=== PATIENT | female | born 1990 | race Caucasian/White ===

== ENCOUNTER 2017-04-11 10:26 | Inpatient (IN) | payer BC, MEDICAID ==
[2017-04-11] MEDS ORDERED: ZOLPIDEM TARTRATE 5 MG TABLET PO PRN (10:51)
[2017-04-11] MEDS ORDERED: MAG HYDROX/AL HYDROX/SIMETH SUSP 30 ML UDCUP PO PRN (10:51)
[2017-04-11] MEDS ORDERED: ACETAMINOPHEN 325 MG TABLET PO PRN (10:51)
[2017-04-11] MEDS ORDERED: DINOPROSTONE 10 MG VAGINAL INSERT.SR PV ONE (10:51)
[2017-04-11] MEDS ORDERED: OXYTOCIN/NORMAL SALINE 1,000 ML IV PRN (10:51)
[2017-04-11] MEDS ORDERED: RINGERS SOLUTION,LACTATED 300 ML IV ONE (10:51)
[2017-04-11 11:38] LABS: HEMATOCRIT 30.6 % (36.0-47.0); HEMOGLOBIN 10.3 g/dL (12.0-15.5); HGB HCT DIFFERENCE 0.3; MEAN CORPUSCULAR HEMOGLOBIN 28.2 pg (27.0-33.4); MEAN CORPUSCULAR HGB CONC 33.7 g/dL (32.0-36.0); MEAN CORPUSCULAR VOLUME 84 fl (80-97); RED BLOOD COUNT 3.66 10^6/uL (3.72-5.28); RED CELL DISTRIBUTION WIDTH 14.4 % (11.5-14.0)
[2017-04-11] MEDS ORDERED: MISOPROSTOL 0.1 MG TABLET ONE ×3 (11:47→21:06)
[2017-04-11 12:13] LABS: URINE BARBITURATES SCREEN NEGATIVE; URINE METHADONE SCREEN NEGATIVE; URINE OPIATES LOW NEGATIVE; URINE PHENCYCLIDINE SCREEN NEGATIVE
[2017-04-11] MEDS: RINGERS SOLUTION,LACTATED 1,000 ML IV PRN (12:24)
[2017-04-11] MEDS: MISOPROSTOL 0.1 MG TABLET PO SCH ×3 (12:24→21:12)
[2017-04-11] MEDS ORDERED: ACETAMINOPHEN 325 MG TABLET ONE (18:38)
[2017-04-12] MEDS ORDERED: OXYTOCIN/NORMAL SALINE 20 UNIT/1,000 ML RTUINJ ONE (01:53)
[2017-04-12] MEDS: RINGERS SOLUTION,LACTATED 1,000 ML IV PRN ×3 (02:05→15:49)
[2017-04-12] MEDS ORDERED: PROMETHAZINE HCL INJ 25 MG/1 ML VIAL IV ONE (03:09)
[2017-04-12] MEDS ORDERED: NALBUPHINE HCL INJ 10 MG/1 ML AMPULE INJ ONE (03:09)
[2017-04-12] MEDS ORDERED: NALBUPHINE HCL INJ 10 MG/1 ML AMPULE ONE (03:11)
[2017-04-12] MEDS ORDERED: PROMETHAZINE HCL INJ 25 MG/1 ML VIAL ONE (03:11)
[2017-04-12] MEDS ORDERED: EPHEDRINE SULFATE INJ 50 MG/1 ML AMPULE ONE (07:25)
[2017-04-12] MEDS ORDERED: FENTANYL/BUPIVACAINE/NS/PF 200 MCG/100 ML RTUINJ EPI ONE (07:26)
[2017-04-12] MEDS ORDERED: BUPIVACAINE HCL 0.25 % INJ/PF (2.5 MG/1 ML) 30 ML VIAL ONE (07:26)
[2017-04-12] MEDS ORDERED: LIDOCAINE 1% INJ-PF (10 MG/ML) 30 ML SDV ONE (13:56)
[2017-04-12] MEDS: MISOPROSTOL 0.1 MG TABLET PO SCH (15:48)
[2017-04-12] MEDS ORDERED: ACETAMINOPHEN WITH CODEINE #3 TABLET ONE (15:58)
--- NOTE | 2017-04-12 16:12 | Admission Physical ---
Datetime Report Generated by CPN: 04/12/2017 16:11 CURRENT ADMISSION Chief Complaint: Scheduled Induction of Labor Indication for Induction: Postterm Admit Plan: Initiate Labor Induction Protocol ALLERGIES Medication Allergies: No Medication Allergies: No Known Allergies (04/12/2017) Medication Allergies: No Known Allergies (01/03/2013) Latex: No Latex Allergies OBSTETRICAL HISTORY EDC: 04/01/2017 00:00 : 1 Para: 0 Term: 0 : 0 SAB: 0 IAB: 0 Ectopic: 0 Livin Cesareans: 0 VBACs: 0 Multiple Births: 0 Gestational Diabetes: No Rh Sensitization: No Incompetent Cervix: No SHANTANU: No Infertility: No ART Treatment: No Uterine Anomaly: No IUGR: No Hx Previous C/S: No Macrosomia: No Hx Loss/Stillborn: No PIH: No Hx : No Placenta Previa/Abruption: No Depression/PP Depression: Yes PTL/PROM: No Post Hemorrhage: No Current Procedures: Ultrasound; NST Obstetrical History Comments: G1 current SEE RECORDS Alcohol: No Marijuana : No Marijuana Comments: unspecified/unknown type of drug abuse history written in records patient received treatment and has been clean for one year Cocaine: No Cocaine Comments: unspecified/unknown type of drug abuse history written in records patient received treatment and has been clean for one year Other Illicit Drugs: No Illicit Drug Comments: unspecified/unknown type of drug abuse history written in records patient received treatment and has been clean for one year Cigarettes: Never Smoker. [id number] MEDICAL HISTORY Diabetes: No Blood Transfusion: No Pulmonary Disease (Asthma, TB): Yes Breast Disease: No Hypertension: No Manager Statistics Surgery: No Heart Disease: No Hosp/Surgery: No Autoimmune Disorder: No Anesthetic Complications: No Kidney Disease: No Abnormal Pap Smear: No Neuro/Epilepsy: No Psychiatric Disorders: No Other Medical Diseases: No Hepatitis/Liver Disease: No Significant Family History: No Varicosities/Phlebitis: No Trauma/Violence : No Thyroid Dysfunction: No Medical History Comments: unspecified drug abuse history written in records patient received treatment and has been clean for one year, asthma, depression history (Annotations: Data stored by [facility] on behalf of user) INFECTIOUS HISTORY Gonorrhea: No Genital Herpes: No Chlamydia: No Tuberculosis: No Syphilis: No Hepatitis: No HIV/AIDS Exposure: No Rash or Viral Illness: No HPV: No PHYSICAL EXAM General: Normal HEENT: Deferred Neurologic: Normal Thyroid: Deferred Heart: Normal Lungs: Normal Breast: Deferred Back: Deferred Abdomen: Normal Extremities: Deferred DTRs: Deferred Pelvic Type: Adequate Physical Exam Comments: cervix exam per RN Vital Signs: Reviewed VAGINAL EXAM Dilatation: 2 Effacement: 50 Station: -3 MEMBRANES Membranes: Intact FETUS A EGA: 41.3 Monitoring: External US FHR- Baseline: 150 Variability: Moderate 6-25bpm Accelerations: 15X15 Decelerations: None FHR Category: Category I Presentation: Vertex Admit Comment: plan for cytotec, then pitocin PLANS FOR LABOR AND DELIVERY Labor and Delivery: Plan Pain Management: Epidural Feeding Preference: Breast Benefit of Breast Feed Discussed: Yes Circumcision: Yes INFORMED CONSENT Assignment: Chris Garduno DO Signature: with User ID: [email or web address] : with User ID: [email or web address]
--- NOTE | 2017-04-12 16:33 | Delivery Summary ---
Del Sum A-C Datetime Report Generated by CPN: 04/12/2017 16:33 DELIVERY PERSONNEL DELIVERY PERSONNEL: [phone] Delivery Doctor:: Fox Chaidez MD Labor and Delivery Nurse:: Tessa Zhang RNlpn Nurse:: Raina Sloan RN Nursery Nurse:: Laura Anaya RN Nursery Nurse:: Erika Saunders RN MATERNAL INFORMATION Delivery Anesthesia: Epidural Medications After Delivery: Pitocin Drip 20 Units/1000ml NSS Estimated Blood Loss (ml): 250 LABOR SUMMARY EDC: 04/01/2017 00:00 No. Babies in Womb: 1 Attempted: No Labor Anesthesia: Epidural LABOR INFORMATION Reason for Induction: Not Applicable Onset of Labor: 04/12/2017 03:10 Complete Dilatation: 04/12/2017 12:32 Cervical Ripening Agents: Cytotec @ (Annotations: 0.25mcg po) Oxytocin: Induction Group B Beta Strep: Negative Steroids Given: None Reason Steroids Not Administered: Not Applicable MEMBRANES Membranes Rupture Method: Spontaneous Rupture of Membranes: 04/12/2017 04:28 Length of Rupture (hr): 9.38 Amniotic Fluid Color: Clear Amniotic Fluid Amount: Large Amniotic Fluid Odor: Normal STAGES OF LABOR Stage 1 hr: 9 Stage 1 min: 22 Stage 2 hr: 1 Stage 2 min: 19 Stage 3 hr: 0 Stage 3 min: 10 Total Time in Labor hr: 10 Total Time in Labor min: 51 VAGINAL DELIVERY Episiotomy: None Laceration Extension: Second Degree Laceration Type: Perineal Other Laceration: labial Laceration Repair: Yes Laceration Repair Note: repair in usual fashion Sponge Count Correct: Yes; Vaginal Sweep Performed Sharps Count Correct: Yes CSECTION DELIVERY Primary Indication: N/A Secondary Indication: N/A CSection Incidence: N/A Labor: N/A Elective: N/A CSection Incision: N/A BABY A INFORMATION Infant Delivery Date/Time: 04/12/2017 13:51 Method of Delivery: Vaginal Born in Route : No : N/A Forceps: N/A Vacuum Extraction: N/A Shoulder Dystocia : No PRESENTATION/POSITION BABY A Presentation: Cephalic Cephalic Presentation: Vertex Vertex Position: Right Occipital Anterior Breech Presentation: N/A PLACENTA INFORMATION BABY A Placenta Delivery Time : 04/12/2017 14:01 Placenta Method of Delivery: Spontaneous Placenta Status: Delivered SCORES BABY A Heart Rate 1 min: >100 bpm Resp Effort 1 min: Good Cry Reflex Irritability 1 min: Cough or Sneeze or Pulls Away Muscle Tone 1 min: Active Motion Color 1 min: Body [place], Extremities Blue Resuscitation Effort 1 min: Tactile Stimulation SCORE 1 MIN: 9 Heart Rate 5 min: >100 bpm Resp Effort 5 min: Good Cry Reflex Irritability 5 min: Cough or Sneeze or Pulls Away Muscle Tone 5 min: Active Motion Color 5 min: Completely [place] Resuscitation Effort 5 min: Tactile Stimulation SCORE 5 MIN: 10 INFORMATION BABY A Gestational Age at Delivery: 41.4 Gestational Status: Late Term- 41- 41.6 Weeks Outcome : Liveborn Infant Condition : Stable Infant Sex: Male IDENTIFICATION BABY A Infant Verification Date/Time: 04/12/2017 14:25 ID Band Number: [id number] Mother's Name Verified: Yes RN Verifying Infant: B Kathyady RN Additional Verifying Personnel: Trupti Kumar RN WEIGHT/LENGTH BABY A Birthweight (gm): 3440 Weight (lb): 7 Infant Weight (oz): 9 Length (in): 20.00 Length (cm): 50.80 CORD INFORMATION BABY A No. Cord Vessels: 3 Nuchal Cord : N/A Cord Blood Taken: Yes-For Eval (Mom's Blood Type - or O+) (Annotations: Data stored by [facility] on behalf of user) Infant Suction: None ASSESSMENT BABY A Complications: None Physical Findings at Delivery: Molding of the Head Infant Respirations: Appears Normal Skin to Skin: Yes Skin to Skin Time (min): 115 Patient Financial Counselor/ALS Called : No Infant Care By: A Héctor RN Transferred To: Remains with Mother BABY B INFORMATION : N/A SIGNATURES Signature: with User ID: [email or web address] : I was personally available for consultation and serving as supervising physician for the MLP.
[2017-04-12] MEDS ORDERED: BENZOCAINE/MENTHOL AEROSOL SPRAY 56 ML TOP PRN (16:40)
[2017-04-12] MEDS ORDERED: ACETAMINOPHEN WITH CODEINE #3 TABLET PO PRN ×2 (16:40)
[2017-04-12] MEDS ORDERED: DIBUCAINE 1% OINTMENT 28 GM TP PRN (16:40)
[2017-04-12] MEDS ORDERED: MEASLES,MUMPS&RUBELLA VACC/PF 0.5 ML VIAL SUBCUT PRN (16:40)
[2017-04-12] MEDS ORDERED: DIPH/PERTUSS(ACELL)/TETANUS VAC/PF 0.5 ML SYR (>=10YO) IM PRN (16:40)
[2017-04-12] MEDS: DOCUSATE SODIUM 100 MG CAPSULE PO SCH (17:31)
[2017-04-12] MEDS: FERROUS SULFATE 325 MG TABLET PO SCH (17:32)
[2017-04-12] MEDS: IBUPROFEN 800 MG TABLET PO SCH (21:25)
[2017-04-13] MEDS: IBUPROFEN 800 MG TABLET PO SCH ×3 (05:16→22:20)
[2017-04-13 07:13] LABS: HEMATOCRIT 24.9 % (36.0-47.0); HGB HCT DIFFERENCE -0.3; MEAN CORPUSCULAR HEMOGLOBIN 27.7 pg (27.0-33.4); MEAN CORPUSCULAR VOLUME 84 fl (80-97); RED BLOOD COUNT 2.96 10^6/uL (3.72-5.28); RED CELL DISTRIBUTION WIDTH 14.2 % (11.5-14.0); WHITE BLOOD COUNT 11.8 10^3/uL (4.0-10.5)
[2017-04-13 07:28] LABS: HEMOGLOBIN 8.2 g/dL (12.0-15.5)
[2017-04-13] MEDS: FERROUS SULFATE 325 MG TABLET PO SCH ×2 (09:41→17:05)
[2017-04-13] MEDS: PRENATAL VITAMIN W-O CA NO5/FE FUMARATE/FA CAPSULE PO SCH (09:41)
[2017-04-13] MEDS: SENNOSIDES/DOCUSATE 8.6-50 MG 1 EACH TABLET PO SCH (09:41)
[2017-04-13] MEDS: DOCUSATE SODIUM 100 MG CAPSULE PO SCH ×2 (09:42→17:05)
--- NOTE | 2017-04-13 11:28 | PDOC PROGRESS REPORT ---
Subjective-OB Subjective: Post Delivery Day: 26 year old. Denies any needs at this time. Pt doing well, no concerns. She reports light bleeding, regular diet and voiding without difficulty. Physical Exam (OB) Vital Signs: Temp Pulse Resp BP Pulse Ox 97.7 F 89 16 112/55 L 100 04/13/17 07:12 04/13/17 07:12 04/13/17 07:12 04/13/17 07:12 04/13/17 07:12 Intake & Output 04/12/17 04/13/17 04/14/17 06:59 06:59 06:59 Intake Total 1999 Balance 1999 Weight 117.9 kg - PIH/Pre-Eclampsia DTR's: 2 + Clonus: Negative Headache: Absent Epigastric Pain: No Visual Changes: No - Lochia Lochia Amount: Scant < 10 ml Lochia Color: Rubra/Red - Abdomen Description: Soft Hernia Present: No Fundal Description: Firm, Midline Fundal Height: u/u - u/2 Objective-Diagnostic Laboratory: 04/13/17 07:04 04/13/17 04/13/17 07:04 07:04 WBC 11.8 H RBC 2.96 L Hgb 8.2 L D Hct 24.9 L MCV 84 MCH 27.7 MCHC 33.0 RDW 14.2 H Plt Count 227 Blood Type Cancelled Assessment and Plan(PN) - Assessment and Plan (1) Vaginal delivery Is this a current diagnosis for this admission?: Yes - Time Spent with Patient Time with patient: Less than 15 minutes Medications reviewed and adjusted accordingly: Yes - Disposition Anticipated Discharge: Home Within: within 24 hours
[2017-04-14] MEDS: IBUPROFEN 800 MG TABLET PO SCH ×2 (05:31→13:12)
[2017-04-14 08:18] VITALS: BP 121/74
[2017-04-14] MEDS: PRENATAL VITAMIN W-O CA NO5/FE FUMARATE/FA CAPSULE PO SCH (09:18)
[2017-04-14] MEDS: DOCUSATE SODIUM 100 MG CAPSULE PO SCH (09:19)
[2017-04-14] MEDS: FERROUS SULFATE 325 MG TABLET PO SCH (09:19)
[2017-04-14] MEDS: SENNOSIDES/DOCUSATE 8.6-50 MG 1 EACH TABLET PO SCH (09:19)
--- NOTE | 2017-04-14 09:37 | PDOC PROGRESS REPORT ---
Subjective-OB Subjective: Post Delivery Day: 26 year old. Denies any needs at this time doing well, mother at BS, no c/o, ambulating, breast/bottle feeding, voiding, eating well, mod bleeding Physical Exam (OB) Vital Signs: Temp Pulse Resp BP Pulse Ox 97.7 F 88 20 121/74 100 04/14/17 07:29 04/14/17 07:29 04/14/17 07:29 04/14/17 07:29 04/14/17 07:29 Intake & Output 04/13/17 04/14/17 04/15/17 06:59 06:59 06:59 Intake Total 1999 Balance 1999 - PIH/Pre-Eclampsia DTR's: 2 + Clonus: Negative Headache: Absent Epigastric Pain: No Visual Changes: No - Lochia Lochia Amount: Small 10-25 ml Lochia Color: Rubra/Red - Abdomen Description: Soft, Distended Hernia Present: No Fundal Description: Firm, Midline Fundal Height: u/u - u/2 Objective-Diagnostic Laboratory: 04/13/17 07:04 Assessment and Plan(PN) - Assessment and Plan (1) Depression Qualifiers: Depression Type: unspecified Qualified Code(s): F32.9 - Major depressive disorder, single episode, unspecified Is this a current diagnosis for this admission?: Yes (2) Vaginal delivery Is this a current diagnosis for this admission?: Yes (3) Post-dates Qualifiers: Post-term type: 40-42 weeks gestation Qualified Code(s): O48.0 - Post-term Is this a current diagnosis for this admission?: Yes - Time Spent with Patient Time with patient: Less than 15 minutes Medications reviewed and adjusted accordingly: Yes - Disposition Anticipated Discharge: Home Within: Other
--- NOTE | 2017-04-14 09:42 | PDOC DISCHARGE SUMMARY ---
Final Diagnosis Discharge Date: 04/14/17 - Final Diagnosis (1) Depression Is this a current diagnosis for this admission?: Yes (2) Vaginal delivery Is this a current diagnosis for this admission?: Yes (3) Post-dates Is this a current diagnosis for this admission?: Yes Discharge Data - Discharge Medication Home Medications: Pnv No.122/Iron/Folic Acid [ Multi Tablet] 1 tab PO DAILY 04/12/17 Gestational Age: 41.4 Reason(s) for Admission: Induction of Labor Procedures: NST, Ultrasound Intrapartum Procedure(s): Spontaneous Vaginal Delivery Complication(s): Laceration-Perineal, Laceration-Labial Laceration-Degree: 2nd - Data Baby 1 Male at 1 minute: 9 at 5 minutes: 10 Weight: 3.43 kg Home with Mother: Yes Complications: No - Diagnosis Test Laboratory: Temp Pulse Resp BP Pulse Ox 97.7 F 88 20 121/74 100 04/14/17 07:29 04/14/17 07:29 04/14/17 07:29 04/14/17 07:29 04/14/17 07:29 04/11/17 04/11/17 04/13/17 10:49 11:15 07:04 RBC 3.66 L 2.96 L Hgb 10.3 L 8.2 L D Hct 30.6 L 24.9 L Urine Opiates Screen NEGATIVE - Discharge information/Instructions Discharge Activity: Activity As Tolerated, No Lifting Over 10 Pounds, No Lifting /Push/Pulling, Pelvic Rest Discharge Diet: As Tolerated, Regular Disposition: HOME, SELF-CARE Follow up with: [facility] in: 4, Weeks
== END 2017-04-14 13:53 | disposition home or self-care (01) | DRG 775 ==
LOC: LR 10:26 → 2S 04-12 16:00
PROVIDERS: ADMIT Obstetrics & Gynecology; ATTEND Obstetrics & Gynecology
PROC: 10E0XZZ Delivery of Products of Conception, External Approach (ICD-10-PCS; principal; 2017-04-12)
PROC: 0KQM0ZZ Repair Perineum Muscle, Open Approach (ICD-10-PCS; 2017-04-12)
PROC: 4A1HXCZ Monitoring of Products of Conception, Cardiac Rate, External Approach (ICD-10-PCS; 2017-04-12)
PROC: 3E0234Z Introduction of Serum, Toxoid and Vaccine into Muscle, Percutaneous Approach (ICD-10-PCS; 2017-04-14)
DX: O70.1 Second degree perineal laceration during delivery (principal); O99.344 Other mental disorders complicating childbirth; F32.9 Major depressive disorder, single episode, unspecified; Z37.0 Single live birth; Z3A.41 41 weeks gestation of pregnancy; Z23 Encounter for immunization
CPT/HCPCS: 36415; 80307; 85027; 86592; 86850; 86900; 86901; 90715; 94760; J2300; J2550; J2590; J3490